=== PATIENT | male | born 1995 | race Caucasian/White ===

== ENCOUNTER 2018-01-31 11:07 | Emergency (ER) | payer BC ==
[~2018-01-31] VITALS: Ht 165.1 cm; Wt 60.8 kg
[~2018-01-31 11:07] MED LIST: BENTYL10 MG PO
[2018-01-31] MEDS ORDERED: ULTRAM50 MG PO (13:51)
[2018-01-31] MEDS ORDERED: ZOFRAN ODT4 MG PO (13:51)
[2018-01-31 14:25] VITALS: BP 120/67
== END 2018-01-31 14:26 | disposition home or self-care (01) ==
LOC: EME 11:07
DX: S09.90XA Unspecified injury of head, initial encounter (principal); M54.2 Cervicalgia; W22.8XXA Striking against or struck by other objects, initial encounter
CPT/HCPCS: 70450; 72125; 99281; 99283